=== PATIENT | female | born 1990 | race Caucasian/White ===

== ENCOUNTER 2019-04-09 14:09 | Emergency (ER) | payer BC ==
[~2019-04-09] VITALS: Ht 160 cm; Wt 72.6 kg
[~2019-04-09 14:09] MED LIST: ACETAMINOPHEN-1 EAC1 PO; CIPRO500 M1 PO; FLEXERIL PO; HYDROCODONE-AP1 EAC6 PO; IBUPROFEN 800800 MG PO; MACROBID 100 M100 M1 PO; NOHOMEMEDICATIONS; ONDANSETRON HCL4 M2 PO; TRAMADOL 50 MG50 MG PO
[2019-04-09] MEDS ORDERED: TOPAMAX 25 MG T25 M1 PO (14:16)
[2019-04-09] MEDS ORDERED: SINGULAIR 10 MG10 M1 PO (14:16)
[2019-04-09] MEDS ORDERED: ADVAIR HFA 230M12 GM INH (14:17)
[2019-04-09] MEDS ORDERED: PROAIR HFA8.5 GM INH (15:07)
[2019-04-09] MEDS ORDERED: PREDNISONE 20 M20 M1 PO (15:07)
[2019-04-09 15:27] VITALS: BP 120/71
== END 2019-04-09 15:27 | disposition home or self-care (01) ==
LOC: M.ERS 14:09
DX: J45.901 Unspecified asthma with (acute) exacerbation (principal); G43.909 Migraine, unspecified, not intractable, without status migrainosus; F17.210 Nicotine dependence, cigarettes, uncomplicated